=== PATIENT | female | born 1965 | race American Indian/Alaskan Native ===

== ENCOUNTER 2019-04-17 07:56 | Day surgery (SDC) | payer OTHER ==
[2019-04-17] MEDS ORDERED: ASPIRIN 325 MG TAB ONE (08:46)
[2019-04-17] MEDS ORDERED: SODIUM CHLORIDE 0.9% 500 ML 500 ML ONE (08:47)
[2019-04-17] MEDS ORDERED: ASPIRIN EC 325 MG TAB PO ONE ×2 (08:48→09:00)
[2019-04-17 08:49] LABS: Basophils % (Auto) 0.6 % (0.0-1.8); Eosinophils # (Auto) 0.1 K/mm3 (0.0-0.4); Hematocrit 44.4 % (30.3-42.9); Hemoglobin 15.2 gm/dl (10.1-14.3); Lymphocytes # (Auto) 3.3 K/mm3 (1.2-5.4); Lymphocytes % (Auto) 52.1 % (13.4-35.0); Mean Corpuscular HGB Conc 34 % (30-34); Mean Corpuscular Volume 89 fl (79-97); Monocytes # (Auto) 0.6 K/mm3 (0.0-0.8); Monocytes % (Auto) 8.7 % (0.0-7.3); Platelet Count 216 K/mm3 (140-440); Red Blood Count 5.02 M/mm3 (3.65-5.03); Red Cell Distribution Width 14.4 % (13.2-15.2)
[2019-04-17 08:59] LABS: INR 0.98 (0.87-1.13)
[2019-04-17] MEDS ORDERED: SODIUM CHLORIDE 0.9% 500 ML 500 ML IV SCH (09:00)
[2019-04-17 09:01] LABS: BUN/Creatinine Ratio 18; Blood Urea Nitrogen 11 mg/dL (7-17); Calcium 9.2 mg/dL (8.4-10.2); Hemolysis Index 8
[2019-04-17] MEDS ORDERED: HEPARIN/NS 5000 UNIT/500ML 1,000 ML IR ONE (09:38)
[2019-04-17] MEDS: fentaNYL 100 MCG/2 ML INJ ONE ×2 (10:03→10:10)
[2019-04-17] MEDS: VERAPAMIL 5 MG/2 ML INJ ONE ×2 (10:03→10:14)
[2019-04-17] MEDS: LIDOCAINE (2%) 20 MG/1 ML VIAL 20 ML MDV INFILTRATI ONE ×2 (10:03→10:13)
[2019-04-17] MEDS: MIDAZOLAM 2 MG/2 ML INJ ONE ×2 (10:03→10:10)
[2019-04-17] MEDS: HEPARIN 10,000 UNITS/10 ML VIAL ONE ×2 (10:04→10:14)
[2019-04-17] MEDS: NITROGLYCERIN SYRINGE 3 ML ONE ×2 (10:05→10:14)
--- NOTE | 2019-04-17 10:35 | Short Stay Summary ---
Short Stay Documentation Date of service: 04/17/19 - History H&P: obtained from office - Allergies and Medications Current Medications: Allergies Penicillins Allergy (Verified 12/13/13 11:45) Rash Home Medications Medication Instructions Recorded Confirmed Last Taken Type Acetaminophen [Tylenol] 650 mg PO PRN PRN 02/20/14 04/17/19 04/16/19 History 650 mg Cholecalciferol (Vitamin D3) 1 tab PO DAILY 02/20/14 04/17/19 04/16/19 History [Vitamin D] 1 tab Acetaminophen/Codeine [Tylenol 1 tab PO Q8H PRN 04/17/19 04/17/19 02/25/19 History /Codeine # 3 tab] 1 tab Azilsartan Medoxomil [Edarbi] 20 mg PO DAILY 04/17/19 04/17/19 04/16/19 History 20 mg Cyclobenzaprine [Flexeril 10 MG 10 mg PO PRN PRN 04/17/19 04/17/19 04/13/19 History TAB] 10 mg Diclofenac EC [Voltaren] 75 mg PO BID 04/17/19 04/17/19 04/16/19 History 75 mg Gabapentin [Neurontin] 300 mg PO QID 04/17/19 04/17/19 04/16/19 History 300 mg Metaxalone [Skelaxin] 800 mg PO BID 04/17/19 04/17/19 04/16/19 History 800 mg Nortriptyline [Pamelor] 25 mg PO HS 04/17/19 04/17/19 04/16/19 History 25 mg Propranolol [Inderal] 10 mg PO BID 04/17/19 04/17/19 04/16/19 History 10 mg Rizatriptan Benzoate [Maxalt] 10 mg PO PRN PRN 04/17/19 04/17/19 04/15/19 History 10 mg Rosuvastatin Calcium 40 mg PO HS 04/17/19 04/17/19 04/16/19 History 40 mg Venlafaxine [Effexor 37.5mg tab] 37.5 mg PO QDAY 04/17/19 04/17/19 04/16/19 History 1 tab Active Medications Sodium Chloride (Nacl 0.9% 500 Ml) 500 mls @ 50 mls/hr IV DIRECT ALEJANDRO Stop: 04/17/19 18:59 Last Admin: 04/17/19 08:53 Dose: 50 mls/hr Documented by: - Brief post op/procedure progress note Date of procedure: 04/17/19 Pre-op diagnosis: cp Post-op diagnosis: same Procedure: see report Anesthesia: local Estimated blood loss: none Pathology: none - Disposition Condition at discharge: Good Disposition: DC-01 TO HOME OR SELFCARE - Discharge Diagnoses (1) Chest pain Status: Chronic Qualifiers: Chest pain type: unspecified Qualified Code(s): R07.9 - Chest pain, unspecified (2) Tobacco use Status: Chronic (3) Hypertension Status: Chronic Qualifiers: Hypertension type: essential hypertension Qualified Code(s): I10 - Essential (primary) hypertension (4) Hyperlipemia, mixed Status: Chronic Short Stay Discharge Plan Activity: advance as tolerated Diet: low fat, low cholesterol Follow up with: ANGELA LEON MD [Primary Care Provider] - 7 Days
[2019-04-17] MEDS ORDERED: traMADol 50 MG TAB PO ONE (10:44)
[2019-04-17] MEDS ORDERED: traMADol 50 MG TAB ONE (10:54)
--- NOTE | 2019-04-17 11:06 | Cardiac Catherization Report ---
ORDERING PHYSICIAN: Dr. Sousa. Being done by Dr. Ivan on 04/17/2019. CLINICAL INFORMATION: A 54-year-old -[place]yp[place] female with recurrent chest pain despite negative stress test, here for a left heart catheterization for suspected coronary artery disease. Procedure was done with moderate sedation. Procedure was done via the right radial artery, sterile technique, local anesthesia, 6-Emirati radial sheath inserted. Sedation was started 10:10 finished at 10:25, 15 minutes of moderate sedation done. PROCEDURE FINDINGS: Showed left system engaged with JL3.5. Left main is short and large and patent, bifurcates into large LAD, is patent, moderate tortuosity, small diagonals are patent. Circumflex is a large caliber vessel, patent, goes into a small OM1 is patent. OM2 is a medium caliber vessel, patent. RCA is a large dominant vessel, moderate tortuosity, patent from proximally and distally. PDA is small, normal LV function, EF 60%, LVEDP 20 mmHg, LV is 125 and aortic is 123/74. No gradient across the aortic valve on pullback. 5-Emirati catheter was taken over a guidewire. A 6-Emirati radial sheath was discontinued. Radial dressing applied. No hematoma, no bleeding. SUMMARY: Normal coronaries, left main patent, LAD patent, circumflex patent, OM1 patent, OM2 patent, OM3 patent, RCA patent. Continue medical management, normal LV function. JOB# [id number] FELIBERTO/NTS
[2019-04-17 13:57] VITALS: BP 128/73
== END 2019-04-17 14:30 | disposition home or self-care (01) ==
LOC: CATH 07:56
PROVIDERS: ATTEND Internal Medicine
DX: R07.89 Other chest pain (principal); I10 Essential (primary) hypertension; E78.2 Mixed hyperlipidemia; K21.9 Gastro-esophageal reflux disease without esophagitis; M19.90 Unspecified osteoarthritis, unspecified site; F32.9 Major depressive disorder, single episode, unspecified; Z98.890 Other specified postprocedural states; Z88.0 Allergy status to penicillin; Z79.899 Other long term (current) drug therapy; Z87.891 Personal history of nicotine dependence; Z98.51 Tubal ligation status; Z90.710 Acquired absence of both cervix and uterus
CPT/HCPCS: 36415; 80048; 85025; 85610; 85730; 93005; 93010; 93458; 99156; C1894; J1644; J2250; J3010; J7040; Q9967

== ENCOUNTER 2022-02-09 10:39 | Outpatient (CLI) | payer OTHER ==
--- NOTE | 2022-02-09 13:15 | XRay Report ---
CERVICAL SPINE 3 VIEWS INDICATION: BACK PAIN. COMPARISON: None. IMPRESSION: There is mild reversal of the normal cervical lordosis which could be secondary to positi oning of the patient or muscular spasm. Normal alignment. No significant discogenic DJD or facet art hropathy. No acute osseous or soft tissue abnormality. LUMBOSACRAL SPINE 3 VIEWS INDICATION: BACK PAIN. COMPARISON: None. IMPRESSION: Normal alignment. No significant discogenic DJD or facet arthropathy. No acute osseous or soft tissue abnormality. Signer Name: Slick Patel Jr, MD Signed: 02/09/2022 1:11 PM Workstation Name: [id number]
== END 2022-02-09 10:40 | disposition home or self-care (01) ==
LOC: XRAY 10:39
PROVIDERS: ATTEND Internal Medicine
DX: M54.50 Low back pain, unspecified (principal)
CPT/HCPCS: 72040; 72100